=== PATIENT | male | born 1980 | race Two or more races ===

== ENCOUNTER 2016-09-07 21:38 | Emergency (ER) | payer OTHER ==
--- NOTE | ~2016-09-07 | CR63 ---
[facility] A Service of [facility] RADIOLOGY TEXT RESULTS PATIENT: ANA SNELL LOCATION: SED : 78 UNIT #: [id number] AGE: [address]: AKSHAT PALMER SEX: M ORDER DR: [id number] [place] [id number] MR#: [id number] Acc #: [id number] NAME: ANA SNELL : 1980 SEX: M STUDY DATE/TIME: 09/07/2016 21:55 UNIT: SED ROOM: STUDY DESCRIPTION: CR Chest 2 View Attending Physician: Akshat Palmer Primary Care Physician: No Primary Care Physician MEDICAL IMAGING REPORT This report is preliminary unless electronic signature is present. EXAM PA lateral chest 09/07/2016 at 21:55 HISTORY Cough, congestion and pain with coughing for 3 days. COMPARISON PA lateral chest 11/13/2009 FINDINGS Suspected retrocardiac left lower mild atelectasis or infiltrate. No pleural effusion or pneumothorax is identified. Heart size within normal limits. IMPRESSION Suspected mild posterior left lower lobe atelectasis or infiltrate. Continued radiographic followup to document resolution recommended. Dictated by... Brandee Nolan M.D. THIS IS AN ELECTRONICALLY VERIFIED REPORT Brandee Nolan M.D. at 09/08/2016 2:43 PM HARJIT/irena TD: 09/08/2016 01:10 [facility] A Service of [facility] RADIOLOGY TEXT RESULTS PATIENT: ANA SNELL LOCATION: SED : 78 UNIT #: [id number] AGE: [address]: AKSHAT PALMER SEX: M ORDER DR: NATALIE #: [id number] MEDICAL IMAGING REPORT
--- NOTE | ~2016-09-07 | EKG ---
PATIENT: ANA SNELL UNIT #: [id number] Ventricular Rate: 92 BPM Atrial Rate: 92 BPM P-R Interval: 152 ms QRS Duration: 94 ms Q-T Interval: 340 ms QTC Calculation(Bezet): 420 ms P [place]: 51 degrees Calculated R [place]: 17 degrees Calculated T [place]: 70 degrees Diagnosis Line: Normal sinus rhythm Diagnosis Line: Otherwise normal ECG Diagnosis Line: Confirmed by ADRIAN LOCKWOOD MD ([id number]) on Diagnosis Line: 10/23/2016 4:06:50 PM INTERPRETING MD: [email or web address]
[~2016-09-07 21:38] MED LIST: ANTI-FUNGAL CR113 GM TOP; IBUPROFEN800 MG PO; KETOPROFEN PO; MOTRIN IB200 M1 PO; NO MEDICATIONS; SKELAXIN PO
[2016-09-07 22:08] LABS: INFLUENZA A NEG (NEG); INFLUENZA B NEG (NEG)
== END 2016-09-07 22:59 | disposition home or self-care (01) ==
LOC: SED 21:38
PROVIDERS: Physician Assistant
DX: J18.9 Pneumonia, unspecified organism (principal)
CPT/HCPCS: 71020; 87651; 87804; 93005; 99283